=== PATIENT | female | born 1995 | race African-American/Black ===

== ENCOUNTER 2016-11-10 13:47 | Emergency (ER) | payer OTHER ==
[2016-11-10 14:01] VITALS: BP 147/93; PULSE 96; TEMP 98; BMI 54.8
--- NOTE | 2016-11-14 16:23 | EKG ---
Test Reason : Blood Pressure : / mmHG Vent. Rate : 099 BPM Atrial Rate : 099 BPM P-R Int : 152 ms QRS Dur : 088 ms QT Int : 344 ms P-R-T Axes : 054 020 -04 degrees QTc Int : 441 ms NORMAL SINUS RHYTHM MINIMAL VOLTAGE CRITERIA FOR LVH, MAY BE NORMAL VARIANT CANNOT RULE OUT ANTERIOR INFARCT , AGE UNDETERMINED ABNORMAL ECG WHEN COMPARED WITH ECG OF 02-OCT-2015 14:53, NO SIGNIFICANT CHANGE WAS FOUND Confirmed by JARETT CAMEJO MD ([id number]) on 11/14/2016 4:23:32 PM Referred By: Confirmed By:JARETT CAMEJO MD
== END 2016-11-10 18:56 | disposition left against medical advice (07) ==
LOC: JER 13:47
DX: Z53.21 Procedure and treatment not carried out due to patient leaving prior to being seen by health care provider (principal)
CPT/HCPCS: 93005; 93010; 99281-25

== ENCOUNTER 2017-01-27 08:51 | Emergency (ER) | payer OTHER ==
[2017-01-27 09:05] VITALS: TEMP 98.4; BMI 51.6
--- NOTE | 2017-01-27 09:31 | PDOC ---
[id number] 4d SOB Time Seen by Provider: 01/27/17 09:31 Past History - Past Medical History Allergies/Adverse Reactions: Allergies Allergy/AdvReac Type Severity Reaction Status Date / Time lithium Allergy Verified 01/27/17 08:59 Home Medications: Ambulatory Orders Clozapine [Clozaril] 100 mg PO BID 10/02/15 Fluphenazine HCl [Prolixin -] 100 mg PO Q8H 10/02/15 Divalproex [Depakote -] 1,000 mg PO HS 01/27/17 Divalproex [Depakote -] 500 mg PO DAILY 01/27/17 Docusate Sodium 300 mg PO DAILY 01/27/17 Sennosides [Senna Concentrate] 2 tab PO DAILY 01/27/17 HTN: Yes Psychiatric Problems: Yes (bipolar) Seizures: Yes - Psycho/Social/Smoking Cessation Hx Anxiety: No Suicidal Ideation: No Smoking History: Never smoked Have you smoked in the past 12 months: No Hx Alcohol Use: No Drug/Substance Use Hx: No Substance Use Type: None *Physical Exam - Vital Signs Last Vital Signs Temp Pulse Resp BP Pulse Ox 98.4 F 106 H 17 130/52 96 01/27/17 08:59 01/27/17 08:59 01/27/17 08:59 01/27/17 08:59 01/27/17 08:59 ED Treatment Course - LABORATORY CBC & Chemistry Diagram: 01/27/17 10:31 01/27/17 10:31 *DC/Admit/Observation/Transfer Diagnosis at time of Disposition: Atypical chest pain - Discharge Dispostion Disposition: HOME Condition at time of disposition: Stable - Referrals Referrals: Anthony Reyes [Primary Care Provider] - - Patient Instructions Additional Instructions: Primary care provider within the next few days Avoid strenuous activities Return to emergency room if any shortness of breath or chest pain reoccurs or any new symptoms develop Patient voiced understanding of discharge instructions and all questions were answered - Attestations Physician Attestion: 01/27/17 09:31 I, Dr. Douglas Tan, attest that this document has been prepared under my direction and personally reviewed by me in its entirety. I further attest, that it accurately reflects all work, treatment, procedures and medical decision -making performed by me.
--- NOTE | 2017-01-27 10:09 | PDOC ---
History of Present Illness - General Chief Complaint: Chest Pain Stated Complaint: SOB Time Seen by Provider: 01/27/17 09:31 History Source: Patient Exam Limitations: No Limitations - History of Present Illness Initial Comments: 01/27/17 10:32 Chief complaint: pain of "entire chest" with shortness of breath History of present illness. Patient is a 21-year-old female with a history of hypertension, obesity and schizoaffective disorder here today due to feeling short of breath with chest pain of "entire chest with shortness of breath even when sitting "while in school today. Patient denies any nasal congestion, cough sore throat, fever, nausea, or vomiting, patient reports that she still receives Depo-Provera is not sexually active and has never been sexually active. Patient could not tell me the name of her medications. Patient is easily falling asleep while talking to her. Patient her mother's phone number to speak with her in regards to medications. Patient goes to [facility]'s day program. Call to speak with mother Mrs. Sandoval at [phone] reports that was discharged from [facility] psych department yesterday was admitted for 3 weeks due to hearing voices. Mother reports that she was fine this morning no complaint of chest pain no shortness of breath however did not want to go to school. Mother was not sure of medications that she was on gave me the phone number to [facility] [phone] call to verify patient's medications she is currently on clozaril 200 mg twice a day, and metoprolol 150 mg daily. 01/27/17 10:37 Timing/Duration: intermittent (chest pain entire chest started today in school with shortness of breath) Severity: moderate Associated Symptoms: reports: chest pain (per pt. "entire chest"), shortness of breath (per pt. ). denies: cough, fever/chills, headaches, loss of appetite, malaise, nausea/vomiting, rash, seizure, syncope, weakness Past History - Past Medical History Allergies/Adverse Reactions: Allergies Allergy/AdvReac Type Severity Reaction Status Date / Time lithium Allergy Verified 01/27/17 08:59 Home Medications: Ambulatory Orders Clozapine [Clozaril] 100 mg PO BID 10/02/15 Fluphenazine HCl [Prolixin -] 100 mg PO Q8H 10/02/15 Divalproex [Depakote -] 1,000 mg PO HS 01/27/17 Divalproex [Depakote -] 500 mg PO DAILY 01/27/17 Docusate Sodium 300 mg PO DAILY 01/27/17 Sennosides [Senna Concentrate] 2 tab PO DAILY 01/27/17 HTN: Yes Psychiatric Problems: Yes (bipolar) Seizures: Yes - Psycho/Social/Smoking Cessation Hx Anxiety: No Suicidal Ideation: No Smoking History: Never smoked Have you smoked in the past 12 months: No Hx Alcohol Use: No Drug/Substance Use Hx: No Substance Use Type: None Review of Systems - Review of Systems Able to Perform ROS?: Yes Constitutional: No: Symptoms Reported HEENTM: No: Symptoms Reported Respiratory: Yes: Shortness of Breath (started today in school ), SOB with Exertion, SOB at Rest. No: Stridor, Wheezing, Hemoptysis Cardiac (ROS): Yes: Chest Pain ("per pt entire chest" ) ABD/GI: No: Symptoms Reported : No: Symptoms Reported Musculoskeletal: No: Symptoms Reported Integumentary: No: Symptoms Reported Psychiatric: Yes: Other (discharged from [facility] yesterday psych was there for 3 weeks according to mother due to hearing voices, denies hearing voices, speech clear, articulate, organized, denies Visual hallucinations, suicdal or homicidal ideations) *Physical Exam - Vital Signs Last Vital Signs Temp Pulse Resp BP Pulse Ox 98.4 F 106 H 17 130/52 96 01/27/17 08:59 01/27/17 08:59 01/27/17 08:59 01/27/17 08:59 01/27/17 08:59 - Physical Exam General Appearance: Yes: Appropriately Dressed HEENT: positive: TMs Normal, Other (would not allow me to examine ears). negative: Pharyngeal Erythema, Tonsillar Exudate, Tonsillar Erythema, Nasal Congestion, Rhinorrhea, Sinus Tenderness Neck: negative: Lymphadenopathy (R), Lymphadenopathy (L) Respiratory/Chest: positive: Lungs Clear, Normal Breath Sounds. negative: Chest Tender, Respiratory Distress Cardiovascular: positive: Regular Rhythm, Regular Rate, S1, S2 Comments:: 01/27/17 20:36 psych: cooperative, casually dressed, falls asleep easily, Mood: "ok", affect constricted, speech normal rate/volume, denies auditory or visual hallucinations , no loosening or associations, gait unimpaired, drowsy, oriented, Integumentary: positive: Normal Color Neurologic: positive: Responsive Heart Score/ECG Review - ECG Impressions Comment:: 01/27/17 13:[address] Tan 01/27/17 14:08 ED Treatment Course - LABORATORY CBC & Chemistry Diagram: 01/27/17 10:31 01/27/17 10:31 Medical Decision Making - Medical Decision Making 01/27/17 10:36 Patient is a 21-year-old female with a history of hypertension, obesity and schizoaffective disorder here today due to feeling short of breath with chest pain of "entire chest with shortness of breath even when sitting "while in school today. Patient denies any nasal congestion, cough sore throat, fever, nausea, or vomiting, patient reports that she still receives Depo-Provera is not sexually active and has never been sexually active. Patient could not tell me the name of her medications. Patient is easily falling asleep while talking to her. Patient her mother's phone number to speak with her in regards to medications. Patient goes to [facility]'s day program. Call to speak with mother Mrs. Sandoval at [phone] reports that was discharged from [facility] psych department yesterday was admitted for 3 weeks due to hearing voices. Mother reports that she was fine this morning no complaint of chest pain no shortness of breath however did not want to go to school. Mother was not sure of medications that she was on gave me the phone number to [facility] [phone] call to verify patient's medications she is currently on clozaril 200 mg twice a day, and metoprolol 150 mg daily. She has not had any recent surgery. Patient does not have any swelling of her lower extremities. Patient continues to be on Depo. Patient denies that pain is worse with movement of chest or torso. SOB not work with exertion. Pt. denies hearing voices is not disorganized, is not talking to herself. 01/27/17 10:37 r/o cardiac cause of chest pain and shortness of breath PLAN: EKG reviewed by Dr. Tan urine hcg negative cbc with diff CMP cardiac enzymes d-dimer chest Xray PA/lateral limited due to body habitus and overlying structures due to being in wheelchair 01/27/17 11:35 01/27/17 12:12 Laboratory Tests 01/27/17 01/27/17 01/27/17 10:31 10:31 10:31 WBC 9.4 RBC 4.37 Hgb 12.0 Hct 37.3 MCV 85.3 MCHC 32.1 RDW 17.0 H Plt Count 278 MPV 8.6 Neutrophils % 61.4 Lymphocytes % 32.2 Monocytes % 6.1 Eosinophils % 0.0 Basophils % 0.3 Sodium 140 Potassium 4.3 Chloride 107 Carbon Dioxide 23 Anion Gap 10 BUN 9 D Creatinine 0.9 Creat Clearance w eGFR > 60 Random Glucose 95 Calcium 9.0 Total Bilirubin 0.2 D AST 12 L D ALT 30 Alkaline Phosphatase 81 Total Protein 7.5 Serum , Qual Negative Laboratory Tests 01/27/17 01/27/17 01/27/17 10:31 10:31 10:31 D-Dimer 204 Sodium 140 Potassium 4.3 Chloride 107 Carbon Dioxide 23 Anion Gap 10 BUN 9 D Creatinine 0.9 Creat Clearance w eGFR > 60 Random Glucose 95 Calcium 9.0 Total Bilirubin 0.2 D AST 12 L D ALT 30 Alkaline Phosphatase 81 Total Protein 7.5 Albumin 3.4 Serum , Qual Negative 01/27/17 12:54 01/27/17 13:27 01/27/17 14:05 pt. denies pain or shortness of breath presently patient has been sleeping on stretcher comfortably in no apparent distress patient to be discharged and to follow up with primary care provider within the next few days lungs CTA b/l upon reassessment 01/27/17 14:06 01/27/17 14:08 01/27/17 20:34 01/27/17 20:38 *DC/Admit/Observation/Transfer Diagnosis at time of Disposition: Atypical chest pain - Discharge Dispostion Disposition: HOME Condition at time of disposition: Stable - Referrals Referrals: Anthony Reyes [Primary Care Provider] - - Patient Instructions Additional Instructions: Primary care provider within the next few days Avoid strenuous activities Return to emergency room if any shortness of breath or chest pain reoccurs or any new symptoms develop Patient voiced understanding of discharge instructions and all questions were answered
[2017-01-27 11:17] LABS: BASOPHIL 0.3 % (0-2.0); MCH 27.3 pg (25.7-33.7); MCHC 32.1 g/dl (32.0-36.0); MEAN CELL VOLUME 85.3 fl (80-96); MEAN PLT VOLUME 8.6 fl (7.5-11.1); NEUTROPHILS 61.4 % (42.8-82.8); PLATELET COUNT 278 K/MM3 (134-434); WHITE BLOOD COUNT 9.4 K/mm3 (4.0-10.0)
[2017-01-27 11:37] LABS: ALBUMIN 3.4 g/dl (3.4-5.0); ALK PHOS 81 U/L (45-117); ANION GAP 10 (8-16); BILIRUBIN,TOTAL 0.2 mg/dL (0.2-1.0); CO2 23 mmol/L (21-32); COCKROFT - GAULT 228.395; CREATININE 0.9 mg/dL (0.55-1.02); GLUCOSE,RANDOM 95 mg/dL (74-106); SGOT/AST 12 U/L (15-37); SGPT/ALT 30 U/L (12-78); TOT PROT 7.5 g/dl (6.4-8.2)
[2017-01-27 12:50] LABS: TROPONIN I < 0.02 ng/ml (0.00-0.05)
[2017-01-27 14:23] VITALS: BP 134/74; PULSE 95
--- NOTE | 2017-01-28 16:28 | EKG ---
Test Reason : Blood Pressure : / mmHG Vent. Rate : 103 BPM Atrial Rate : 103 BPM P-R Int : 152 ms QRS Dur : 082 ms QT Int : 332 ms P-R-T Axes : 066 036 004 degrees QTc Int : 434 ms SINUS TACHYCARDIA CANNOT RULE OUT ANTERIOR INFARCT (CITED ON OR BEFORE 10-NOV-2016) ABNORMAL ECG WHEN COMPARED WITH ECG OF 10-NOV-2016 13:59, NO SIGNIFICANT CHANGE WAS FOUND Confirmed by NANO HERNANDEZ, CARINA ([id number]) on 01/28/2017 4:27:57 PM Referred By: Confirmed By:CARINA MCGILL MD
== END 2017-01-27 14:23 | disposition home or self-care (01) ==
LOC: JER 08:51
DX: R07.89 Other chest pain (principal); I10 Essential (primary) hypertension; F31.9 Bipolar disorder, unspecified; F25.9 Schizoaffective disorder, unspecified; G40.909 Epilepsy, unspecified, not intractable, without status epilepticus
CPT/HCPCS: 36415; 71020-TC; 80053; 82550; 82553; 84484; 84703; 85025; 85379; 93005; 93010; 99284-25